=== PATIENT | male | born 1945 | race Caucasian/White ===

== ENCOUNTER 2017-01-03 07:54 | Emergency (ER) | payer OTHER ==
[2017-01-03 09:30] LABS: HEMOGLOBIN 15.6 gm/dl (14.0-17.5); RED BLOOD COUNT 5.61 M/UL (4.20-5.50); WHITE BLOOD COUNT 9.9 K/UL (4.5-11.0)
== END 2017-01-03 10:55 | disposition home or self-care (01) ==
LOC: ER1 07:54
PROVIDERS: Physician Assistant
DX: M10.9 Gout, unspecified (principal)
CPT/HCPCS: 36415; 73630; 80048; 84550; 85025; 96372; 99283; J1100